=== PATIENT | male | born 1970 | race Two or more races ===

== ENCOUNTER 2022-09-16 16:12 | Inpatient (IN) | payer OTHER ==
[2022-09-16 17:58] VITALS: BMI 20.7
[2022-09-16] MEDS ORDERED: MAGNESIUM HYDROX 2400MG/30ML ORAL SUSPENSION 30 ML CUP PO PRN (21:01)
[2022-09-16] MEDS ORDERED: guaiFENesin 200 MG/10 ML 10 ML UNIT-DOSE CUPS PO PRN (21:01)
[2022-09-16] MEDS ORDERED: METHOCARBAMOL 500 MG TABLET PO PRN (21:01)
[2022-09-16] MEDS ORDERED: BISMUTH SUBSALICYLATE 524 MG/30 ML PO PRN (21:01)
[2022-09-16] MEDS ORDERED: P-EPHED 60MG/TRIPROLIDI 2.5MG TABLET PO PRN (21:01)
[2022-09-16] MEDS ORDERED: BENZOCAINE/MENTHOL (CHLORASEPTIC ) LOZENGE MM PRN (21:01)
[2022-09-16] MEDS ORDERED: ONDANSETRON *ODT* 4 MG TABLET SL PRN (21:01)
[2022-09-16] MEDS ORDERED: MAG HYDROX/AL HYDROX/SIMETH 30 ML UNIT-DOSE CUP PO PRN (21:01)
[2022-09-16] MEDS ORDERED: MAGNESIUM CITRATE 300 ML BOTTLE PO PRN (21:01)
[2022-09-16] MEDS ORDERED: IBUPROFEN 600 MG TABLET (FP) PO PRN (21:01)
[2022-09-16] MEDS ORDERED: hydrOXYzine PAMOATE 25 MG CAPSULE (FP) PO PRN (21:01)
[2022-09-16] MEDS ORDERED: NICOTINE 10 MG CARTRIDGE (INHALER) IH PRN (21:01)
[2022-09-16] MEDS ORDERED: ACETAMINOPHEN 325 MG TABLET (FP) PO PRN ×2 (21:01)
[2022-09-16] MEDS ORDERED: IBUPROFEN 400 MG TABLET (FP) PO PRN (21:01)
[2022-09-16] MEDS ORDERED: MELATONIN 5 MG TABLETS PO PRN (21:01)
[2022-09-16] MEDS ORDERED: LOPERAMIDE HCL 2 MG CAPSULE PO PRN (21:01)
[2022-09-16] MEDS ORDERED: DICYCLOMINE HCL 10 MG CAPSULE PO PRN (21:01)
[2022-09-16] MEDS ORDERED: VITAMINS A AND D TOPICAL OINTMENT 60 GM TUBE TP PRN (21:03)
[2022-09-16] MEDS ORDERED: chlordiazePOXIDE HCL 25 MG CAPSULE PO PRN (21:04)
[2022-09-16] MEDS ORDERED: chlordiazePOXIDE HCL 25 MG CAPSULE ONE (21:28)
[2022-09-16] MEDS ORDERED: chlordiazePOXIDE HCL 25 MG CAPSULE PO SCH (23:00)
[2022-09-17] MEDS: THIAMINE HCL 100 MG TABLET (FP) PO SCH ×2 (01:17→22:43)
[2022-09-17] MEDS: chlordiazePOXIDE HCL 25 MG CAPSULE PO SCH ×5 (01:25→22:43)
[2022-09-17] MEDS ORDERED: PRENATAL VITAMINS W/ FOLIC ACID TABLET (FP) PO SCH (10:00)
[2022-09-17 14:16] LABS: HEMOGLOBIN 13.4 GM/dL (11.7-16.9); MCH 28.3 pg (25.7-33.7); MCHC 32.6 g/dl (32.0-35.9); MEAN CELL VOLUME 86.9 fl (80-96); MEAN PLT VOLUME 7.8 fl (7.5-11.1); PLATELET COUNT 320 10^3/uL (134-434); RBC 4.72 M/mm3 (4.00-5.60); RDW 15.4 % (11.9-15.9); WHITE BLOOD COUNT 4.9 K/mm3 (4.0-10.0)
[2022-09-17 14:26] LABS: BLOOD UREA NITROGEN 18.2 mg/dL (7-18)
[2022-09-17 14:27] LABS: ALBUMIN 3.2 g/dl (3.4-5.0)
[2022-09-17 14:29] LABS: CREATININE 1.2 mg/dL (0.55-1.3)
[2022-09-17 14:30] LABS: BILIRUBIN,TOTAL 0.2 mg/dL (0.2-1); TOT PROT 6.9 g/dl (6.4-8.2)
[2022-09-17 17:46] VITALS: RESP 18
[2022-09-17] MEDS ORDERED: AMMONIUM LACTATE 12% LOTION 225 GM BOTTLE TP SCH (22:00)
[2022-09-18] MEDS ORDERED: chlordiazePOXIDE HCL 25 MG CAPSULE PO SCH (05:00)
[2022-09-18 06:07] VITALS: BP 96/57; PULSE 64; TEMP 97.3
[2022-09-19] MEDS ORDERED: chlordiazePOXIDE HCL 10 MG CAPSULE PO PRN
[2022-09-19] MEDS ORDERED: chlordiazePOXIDE HCL 10 MG CAPSULE PO SCH (05:00)
[2022-09-20] MEDS ORDERED: chlordiazePOXIDE HCL 10 MG CAPSULE PO SCH (05:00)
[2022-09-21] MEDS ORDERED: chlordiazePOXIDE HCL 10 MG CAPSULE PO ONE (05:00)
== END 2022-09-18 08:17 | disposition home or self-care (01) | DRG 774 ==
LOC: YASAS 16:12 → Y3N 23:07
PROVIDERS: ADMIT Allergy & Immunology; ATTEND Surgery
PROC: HZ2ZZZZ Detoxification Services for Substance Abuse Treatment (ICD-10-PCS; principal; 2022-09-16)
DX: F10.230 Alcohol dependence with withdrawal, uncomplicated (principal); F14.20 Cocaine dependence, uncomplicated; F17.210 Nicotine dependence, cigarettes, uncomplicated; M19.90 Unspecified osteoarthritis, unspecified site; R76.11 Nonspecific reaction to tuberculin skin test without active tuberculosis; Z28.310 Unvaccinated for COVID-19; Z28.9 Immunization not carried out for unspecified reason
CPT/HCPCS: 36415; 80053; 85027; 86780; C9803-CS; U0003; U0005